=== PATIENT | male | born 1965 | race Caucasian/White ===

== ENCOUNTER 2019-11-02 14:44 | Emergency (ER) | payer OTHER, SELFPAY ==
[2019-11-02 14:51] VITALS: BP 134/91; PULSE 123; RESP 14; TEMP 39.5; O2SAT 97; BMI 35.7
--- NOTE | 2019-11-02 15:16 | XR_ITS ---
WS: [id number] Portable AP upright chest, 11/02/2019 Clinical Data: fever Comparison: None. Findings: No nodules, masses or effusions are seen. The heart is normal. The pulmonary vascularity is not increased. No pneumonia or pneumothorax is seen. XR/XR chest 1V portable [id number] Impression: Negative chest.
--- NOTE | 2019-11-02 15:16 | W.ED.FEVER ---
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 He is not had any cold exposure that he is aware of. Has no other COVID symptoms besides diarrhea and fever and he has not taken anything for the fever. He denies cough loss of taste smell or other related problems MD elicited complaint: fever Onset (ago): day(s) Exacerbating factors: nothing Relieving factors: nothing Associated symptoms: Reports diarrhea; Deny chills, chest pain, extremity pain, headache(s) or nasal congestion Review of Systems Const: Reports: fever(s); Denies: chills or body aches Eyes: Denies: change in vision or blurry vision ENMT: Denies: throat pain or nasal congestion Card: Denies: chest pain or dyspnea on exertion Resp: Denies: dyspnea, productive cough or non-productive cough GI: Reports: diarrhea : Denies: difficulty urinating Musc: Denies: extremity pain Skin/Breast: Denies: rash Neuro: Denies: headache(s) Psych: Denies: anxiety or depression Teofilo/Lymph: Denies: easy bruising Physical Exam Const: COMMON NORMALS: no acute distress, average body habitus and patient oriented x3 HENMT: COMMON NORMALS: normocephalic HEAD & SCALP: normal to inspection and normocephalic FACE & SINUS: normal facial exam Eye: COMMON NORMALS: conjunctivae normal GENERAL EYE: appearance normal, both eyes and all related structures CONJUNCTIVA: Yes conjunctivae normal Neck/C-Spine: COMMON NORMALS: no JVD Chest: COMMONS NORMALS: normal inspection of the chest Resp: COMMON NORMALS: normal respiratory effort and clear to auscultation bilaterally AUSCULTATION: clear to auscultation bilaterally Cardio: COMMON NORMALS: no JVD, regular rate and regular rhythm RATE: regular rate RHYTHM: regular rhythm GI: COMMON NORMALS: Normal to inspection, nondistended, normoactive bowel sounds present Extremity: COMMON NORMALS: normal to inspection and full ROM Neuro: COMMON NORMALS: patient oriented x3 Course Vital Signs: Vital signs: Vital Signs Temperature 103.1 F H 08/27/20 14:51 Pulse Rate 123 H 11/02/19 14:51 Respiratory Rate 14 11/02/19 14:51 Blood Pressure 134/91 11/02/19 14:51 Pulse Oximetry 97 11/02/19 14:51 Discharge Plan Discharge Condition: Good Coding Level of Care Code ED Multicut Line Operator for Dirk Jacinto
[2019-11-02] MEDS: sodium chloride 0.9% 1,000 ML 999 ML IV (15:45)
[2019-11-02] MEDS: ibuprofen 600 mg Tablet PO (15:45)
[2019-11-02] MEDS: acetaminophen 500 mg Tablet 1000 MG PO (15:45)
[2019-11-02 15:51] VITALS: O2SAT 95
[2019-11-02 16:10] LABS: Basophils % 0.3 %; Eosinophils % 0.1 %; Hemoglobin 15.6 g/dL (11.7-16.6); Lymphocytes # 0.8 10^3/uL (0.8-4.8); Lymphocytes % 7.2 %; Mean Corpuscular HGB Conc 34.7 g/dL (30.0-36.0); Mean Corpuscular Hemoglobin 33.1 pg (28.0-34.0); Mean Corpuscular Volume 95.3 fL (80-94); Mean Platelet Volume 8.8 fL (7.4-10.4); Monocytes # 0.5 10^3/uL (0.2-0.9); Monocytes % 5.2 %; Neutrophils # 9.07 10^3/uL (1.8-7.7); Neutrophils % 86.8 %; Nucleated Red Blood Cells % 0 %; Platelet Count 197 10^3/cmm (130-400); Red Blood Count 4.72 10^6/uL (4.1-5.3); Red Cell Distribution Width 11.9 % (12.1-15.1); White Blood Count 10.4 10^3/uL (4.0-10.0)
[2019-11-02 16:36] LABS: Alanine Aminotransferase 20 U/L (0-41); Albumin Level 4.1 g/dL (3.5-5.2); Alkaline Phosphatase 67 IU/L (40-130); Anion Gap 15.5 (5-19); Aspartate Amino Transferase 27 U/L (0-40); Blood Urea Nitrogen 13 mg/dL (6-20); Calcium 8.7 mg/dL (8.5-10.5); Carbon Dioxide 22 mmol/L (22-29); Chloride 100 mmol/L (98-107); Globulin 3.6 g/dL (1.3-4.6); Glomerular Filtration Rate 69.8 mL/min (90-130); Glucose 112 mg/dL (65-115); Osmolality Calculated 275 mOsm/kg (285-295); Potassium 3.5 mmol/L (3.5-5.1); Sodium 134 mmol/L (136-145); Total Bilirubin 0.6 mg/dL (0.15-1.2); Total Protein 7.7 g/dL (6.6-8.7)
[2019-11-02 16:38] VITALS: BP 108/68; PULSE 91; TEMP 37.9; O2SAT 94
[2019-11-02 17:10] VITALS: BP 120/84; PULSE 94; O2SAT 95
[2019-11-04 18:32] LABS: Quest SARS-CoV-2 RNA NOT DETECTED (NOT DETECTED)
--- NOTE | 2019-11-05 11:32 | PC.NURSE ---
pt was contacted and informed of his neg COVID results
== END 2019-11-02 17:10 | disposition home or self-care (01) ==
PROVIDERS: Emergency Provider Nurse Practitioner Family; Family Provider Family Medicine; PCP Nurse Practitioner
DX: R50.9 Fever, unspecified (principal)
CPT/HCPCS: 12345; 71045; 80053; 85025; 87635; 96360; 99282; 99283; J7030

== ENCOUNTER 2019-12-15 09:09 | Outpatient (CLI) | payer OTHER, SELFPAY ==
--- NOTE | 2019-12-15 | CT_ITS ---
WS: [id number] CT ABDOMEN AND PELVIS WITH CONTRAST HISTORY: LOWER MID ABD PAIN TECHNIQUE: Imaging performed of the abdomen and pelvis with IV contrast. Single phase imaging of the abdomen. Coronal and sagittal reformats are submitted. All CT scans at [facility] use at least one of these dose optimization techniques: automated exposure control; mA and/or kV adjustment per patient size (includes targeted exams where dose is matched to clinical indication); or iterativ e reconstruction. IV CONTRAST: Omnipaque 300; 95 mL IV. Oral contrast: Yes. DLP: 1193.05 mGycm COMPARISON: 12/06/2018 Lower thorax: No change 4 mm nodule at the RIGHT lung base. Heart is normal size. Small hiatal hernia . Liver/biliary system: Normal size with no intrahepatic dilatation. Gallbladder: Normal. No gallstones or wall thickening. No pericholecystic fluid. Pancreas: Normal. Spleen: Normal. Adrenal glands: Normal. Right kidney: Normal. Left kidney: Normal. Aorta: Minimal atherosclerosis with no aneurysm. Lymphadenopathy: None. Free fluid: None. GI tract: The appendix is not definitely identified but there is no evidence for appendicitis. Mild d iffuse constipation and fecal retention. There are a few scattered sigmoid diverticula without acute diverticulitis. Abdominal wall: Unremarkable abdominal wall. No hernia. Pelvis: Normal. Bones: Unremarkable. CT/CT abdomen pelvis w con* [id number] IMPRESSION: 1. Mild constipation. No obstruction. No acute abdominal or pelvic abnormaliti es identified. 2. Mild atherosclerosis aorta. 3. Minimal sigmoid diverticulosis without acute diverticulitis.
[2019-12-15] MEDS: iohexol 300 mg/mL 100 mL Btl IV (10:53)
== END 2019-12-15 09:10 | disposition home or self-care (01) ==
LOC: RADWPI 09:22
PROVIDERS: Family Provider Family Medicine; PCP Nurse Practitioner; Visit Provider Family Medicine
DX: R10.30 Lower abdominal pain, unspecified (principal); K59.00 Constipation, unspecified; I70.0 Atherosclerosis of aorta; K57.30 Diverticulosis of large intestine without perforation or abscess without bleeding
CPT/HCPCS: 74177; Q9967

== ENCOUNTER 2022-02-16 18:52 | Emergency (ER) | payer OTHER, SELFPAY ==
[2022-02-16 19:31] VITALS: BP 120/91; PULSE 100; RESP 18; TEMP 37.4; O2SAT 95; BMI 36.5
[2022-02-16 19:59] LABS: Influenza A by IFA negative (Negative); Influenza B by IFA negative (Negative)
[2022-02-16 20:30] LABS: SARS Covid-2 Antigen negative (Negative)
--- NOTE | 2022-02-16 20:39 | XRR_ITS ---
PROCEDURE INFORMATION: Exam: XR Chest Exam date and time: 02/16/2022 8:50 PM Age: 56 years old Clinical indication: Fever TECHNIQUE: Imaging protocol: Radiologic exam of the chest. Views: 1 view. COMPARISON: CR XR chest 1V portable [id number] 11/02/2019 3:54 PM FINDINGS: Lungs: Unremarkable. No consolidation. Pleural spaces: Unremarkable. No pleural effusion. No pneumothorax. Heart/Mediastinum: Unremarkable. No cardiomegaly. Bones/joints: Unremarkable. XR/XR chest 1V portable [id number] IMPRESSION: No change, lungs clear
--- NOTE | 2022-02-16 20:39 | W.ED.FEVER ---
HPI - Fever General: Chief Complaint: Fever Stated Complaint: Fever- Cant Break it Time Seen by Provider: 02/16/22 20:38 History of Present Illness: 56-year-old male patient comes in today for complaints of fever and headache for the last 2 days. Patient appears mildly unwell but not toxic. Patient appears in no pain. Patient reports no chronic medical problems. Associated symptoms: Reports headache(s) Review of Systems Const: Reports: fever(s) Neuro: Reports: headache(s) Physical Exam Const: COMMON NORMALS: alert HENMT: COMMON NORMALS: normocephalic HEAD & SCALP: normocephalic Neck/C-Spine: COMMON NORMALS: no meningeal signs Resp: COMMON NORMALS: normal respiratory effort and clear to auscultation bilaterally AUSCULTATION: clear to auscultation bilaterally Cardio: COMMON NORMALS: regular rate and regular rhythm RATE: regular rate RHYTHM: regular rhythm Extremity: COMMON NORMALS: normal to inspection Neuro: SENSORIUM/ORIENTATION: Yes alert MENINGEAL SIGNS: Yes no meningeal signs Skin: COMMON NORMALS: turgor normal GENERAL SKIN EXAM: turgor normal Course Vital Signs: Vital signs: Vital Signs Temperature 99.3 F 02/16/22 19:31 Pulse Rate 100 02/16/22 19:31 Respiratory Rate 18 02/16/22 19:31 Blood Pressure 120/91 02/16/22 19:31 Pulse Oximetry 95 02/16/22 19:31 Oxygen Delivery Me thod 02/16/22 19:31 MDM - Fever Medical Decision Making 56-year-old male patient comes in today for complaints of headache and fever for the last 2 days. On exam patient's bilateral tympanic membranes are normal. Patient does have some inspiratory wheeze. Abdomen soft nontender. No edema. Vital signs are normal. Differential diagnosis includes COVID-19, influenza, pneumonia, upper respiratory infection. COVID and flu test were negative. Chest x-ray was unremarkable. Reviewed exam with patient with recommendations for treatment and follow-up. Patient reported understanding agreed to plan. Lab Data Laboratory Results Influenza Type A Ag negative (Negative) 02/16/22 19:36 Influenza Type B Ag negative (Negative) 02/16/22 19:36 SARS-CoV-2 Ag (Rapid) negative (Negative) 02/16/22 19:36 Discharge Plan Discharge Patient Disposition: Home Clinical Impression: Viral infection Condition: Stable Prescriptions: No Action Zithromax Z-Joel 250 mg tablet See Rx Instructions .ROUTE .COMPLEX Qty: 6 0RF Rx Instructions: take 500 mg today (day 1), then 250 mg for 4 days (days 2-5) Discharge Orders: Discharge ED (Routine); Ordered 02/16/22 Ordered By: Juan Diego Arzate Discharge Diet: Usual diet Discharge Activity: Increase activity as tolerated Patient Instructions: Viral Syndrome (ED) Activity Restrictions/Additional Instructions: Drink plenty of fluids. Continue with acetaminophen and ibuprofen for pain and fever. Most often the fever will break within days 3-5. It is important to stay well-hydrated. Follow-up with primary care in 1 week for recheck. Return to ED for worsening symptoms such as inability to hold fluids down, severe chest pain, increased difficulty breathing, or new concerns. Stand Alone Forms: Work/School Release Coding Level of Care Code ED Licensed Direct Entry Midwife for Dirk Fwd Exam Detailed
[2022-02-16 21:06] VITALS: BP 127/79; PULSE 100; RESP 18; TEMP 37.1; O2SAT 95
== END 2022-02-16 21:05 | disposition home or self-care (01) ==
PROVIDERS: Emergency Medicine; Emergency Provider Nurse Practitioner Family
DX: B34.9 Viral infection, unspecified (principal); Z20.822 Contact with and (suspected) exposure to COVID-19
CPT/HCPCS: 71045; 87426; 87804; 99283

== ENCOUNTER 2022-05-09 21:30 | Emergency (ER) | payer OTHER, SELFPAY ==
[2022-05-09 21:41] VITALS: BP 132/92; PULSE 90; RESP 18; TEMP 36.9; O2SAT 97
--- NOTE | 2022-05-09 22:21 | W.ED.BACK ---
HPI - Back Pain/Injury General: Chief Complaint: Back Pain/Injury Stated Complaint: back pain Time Seen by Provider: 05/09/22 22:21 History of Present Illness: 56-year-old male patient comes in today for complaints of right-sided low back pain. Patient was using a sledgehammer on and since then he has had some right-sided low back tightness and muscle spasms. Patient appears nontoxic. Patient appears in mild to moderate pain. Patient does have a history of prior back problems but no chronic medical problems otherwise. Associated symptoms: Deny fever(s) or vomiting Review of Systems General: Reports: 10 or more systems reviewed and unremarkable except in HPI and below Const: Denies: fever(s) Card: Denies: chest pain Resp: Denies: dyspnea GI: Denies: vomiting : Denies: difficulty urinating Musc: Reports: back pain Skin/Breast: Denies: rash Neuro: Denies: headache(s) Physical Exam Const: COMMON NORMALS: alert HENMT: COMMON NORMALS: atraumatic HEAD & SCALP: atraumatic Neck/C-Spine: COMMON NORMALS: full ROM Resp: COMMON NORMALS: normal respiratory effort Cardio: COMMON NORMALS: regular rate RATE: regular rate GI: COMMON NORMALS: non-tender Back/Pelvis: THORACIC SPINE/UPPER BACK: No thoracic spinal tenderness and No paraspinal muscle tenderness LUMBAR SPINE/LOWER BACK: No lumbar spinal tenderness and Yes paraspinal muscle tenderness Lumbar paraspinal muscle tenderness: right Extremity: COMMON NORMALS: full ROM Neuro: SENSORIUM/ORIENTATION: Yes alert Course Vital Signs: Vital signs: Vital Signs Temperature 98.4 F 05/09/22 21:41 Pulse Rate 90 05/09/22 21:41 Respiratory Rate 18 05/09/22 21:41 Blood Pressure 132/92 05/09/22 21:41 Pulse Oximetry 97 05/09/22 21:41 Oxygen Delivery Me thod 05/09/22 21:41 MDM - Back Pain/Injury Medical Decision Making 56-year-old male patient comes in today for complaints of right-sided low back pain. On exam patient has muscle tenderness and tightness to the right lower lumbar region. No palpable tenderness along the thoracic or lumbar spine. Patient moves extremities without difficulty. Vital signs are normal. Differential diagnosis includes intervertebral disc disease, facet arthropathy, lumbar strain. Reviewed exam with patient with recommendations for treatment and follow-up. Patient reported understanding and agreed to plan. Discharge Plan Discharge Patient Disposition: Home Clinical Impression: Strain of lumbar region Qualifiers: Encounter type: initial encounter Qualified Code(s): S39.012A - Strain of muscle, fascia and tendon of lower back, initial encounter Condition: Stable Prescriptions: New diclofenac sodium 75 mg tablet,delayed release (DR/EC) 75 mg PO BID Qty: 20 0RF methocarbamol 750 mg tablet 750 mg PO TID PRN (Reason: muscle spasm) Qty: 15 0RF Discontinued azithromycin [Zithromax Z-Joel] 250 mg tablet See Rx Instructions .ROUTE .COMPLEX Qty: 6 0RF Rx Instructions: take 500 mg today (day 1), then 250 mg for 4 days (days 2-5) Discharge Orders: Discharge ED (Routine); Ordered 05/09/22 Ordered By: Juan Diego Arzate Discharge Diet: Usual diet Discharge Activity: Increase activity as tolerated Patient Instructions: Low Back Strain (ED) Activity Restrictions/Additional Instructions: Activity as tolerated. Use diclofenac 75 mg 1 tablet 2 times a day for pain and inflammation. Use methocarbamol 750 mg 1 tablet 3 times a day for muscle spasms. The use of methocarbamol may make you sleepy so do not use it if you are operating equipment or machinery that could harm yourself or others including motor vehicles. Drink plenty of water with medication. Gentle stretching and range of motion exercises. You can use acetaminophen 1000 mg 3 times a day as needed for further pain relief. Follow-up with primary care in 1 week for recheck. Return to ED for new concerns. Coding Level of Care Code ED Production Broacher for Dirk Jacinto
[2022-05-09] MEDS: cyclobenzaprine 10 mg Tablet PO (22:42)
[2022-05-09] MEDS: ketorolac 30 mg/mL INJ IM (22:42)
--- NOTE | 2022-05-15 14:06 | DCPLANNER ---
Addendum entered by Ramona Vieira 05/18/22 13:03: manager contact called patient due to no primary care physician. manager contact called phone number [phone] - no answer at this time. Original Note: manager contact called patient due to no primary care physician. manager contact called phone number [phone] - no answer at this time.
== END 2022-05-09 22:46 | disposition home or self-care (01) ==
PROVIDERS: Emergency Provider Nurse Practitioner Family
DX: S39.012A Strain of muscle, fascia and tendon of lower back, initial encounter (principal); X58.XXXA Exposure to other specified factors, initial encounter
CPT/HCPCS: 96372; 99284; J1885

== ENCOUNTER 2023-08-10 09:09 | Emergency (ER) | payer OTHER, SELFPAY ==
[2023-08-10 09:15] VITALS: BP 161/107; PULSE 80; RESP 16; TEMP 36.7; O2SAT 97; BMI 27.3
--- NOTE | 2023-08-10 09:22 | ED_ITS ---
HPI - URI/Sore Throat General: Chief Complaint: Upper Respiratory Infection Stated Complaint: congestion Time Seen by Provider: 08/10/23 09:10 Source: patient Mode of arrival: ambulatory Limitations: no limitations History of Present Illness: Patient is a 57-year-old male presents to ED today with complaint of a productive cough and nasal congestion. Patient states he has had a dry irritative cough over the past 2 weeks or so. He initially thought this could be related to his allergies. Patient does not take any allergy medication. He states over the past few days cough has now turned productive and he is having a green like phlegm. He is not running fevers. He is not noting any chest pain or significant shortness of breath. No sick contacts. He he arrives in no acute distress. He is hypertensive upon arrival. No known history of hypertension. MD elicited complaint: cough and nasal congestion Pertinent past history: seasonal allergies Onset (ago): day(s) Consistency: constant Severity: moderate Description of mucous: green Able to tolerate fluids by mouth: Yes Exacerbating factors: nothing Relieving factors: nothing Associated symptoms: Reports cough, nasal congestion and sinus pain; Deny chills, chest pain, diarrhea, ear or mastoid pain, fever(s), headache(s) or vomiting Treatments prior to arrival: none Review of Systems Const: Denies: fever(s), chills, body aches or fatigue Eyes: Denies: change in vision, blurry vision, photophobia, eye discomfort or eye discharge ENMT: Reports: nasal congestion and sinus pain; Denies: throat pain, odynophagia, ear or mastoid pain or post nasal drip Card: Denies: chest pain Resp: Reports: productive cough, non-productive cough and chest congestion; Denies: dyspnea, wheezing or hemoptysis GI: Denies: vomiting or diarrhea Musc: Denies: neck pain Neuro: Denies: headache(s) All/Imm: Denies: facial swelling or seasonal rhinorrhea Physical Exam Const: COMMON NORMALS: no acute distress, average body habitus, patient oriented x3, no limitations, alert and well nourished GENERAL APPEARANCE: cooperative ORIENTATION/CONSCIOUSNESS: Yes awake, Yes oriented to person, Yes oriented to place and Yes oriented to time HENMT: COMMON NORMALS: normocephalic, atraumatic, hearing grossly normal bilaterally, external ears normal, EAC's normal, TM's normal bilaterally, Normal external nose present, Normal nasal mucous membranes and turbinates present, moist oral mucous membranes and oropharynx normal HEAD & SCALP: normal to inspection, normocephalic and atraumatic FACE & SINUS: normal facial exam and sinuses nontender NOSE: Normal external nose present and Normal nasal mucous membranes and turbinates present EXTERNAL EAR: Yes external ears normal EXTERNAL AUDITORY CANAL: EAC's normal TYMPANIC MEMBRANE: TM's normal bilaterally MOUTH: Normal oral and palatal mucosa present and lip normal THROAT: posterior oropharynx normal, tonsils normal and uvula midline Eye: COMMON NORMALS: Equal, round and reactive pupils present, EOMs intact bilaterally and conjunctivae normal CONJUNCTIVA: Yes conjunctivae normal PUPIL: Yes Equal, round and reactive pupils present Neck/C-Spine: COMMON NORMALS: no lymphadenopathy Chest: COMMONS NORMALS: normal inspection of the chest and normal palpation of entire chest wall Resp: COMMON NORMALS: normal respiratory effort EFFORT & INSPECTION: No respiratory distress, No labored, No grunting, No stridor, No Actively coughing and No audible wheezes AUSCULTATION: other (prolonged expiratory phase) Cardio: COMMON NORMALS: regular rate and regular rhythm RATE: regular rate RHYTHM: regular rhythm Extremity: COMMON NORMALS: normal to inspection, no clubbing, cyanosis or edema, no calf tenderness and no pedal edema GENERAL: Yes normal exam except as noted Neuro: COMMON NORMALS: patient oriented x3, moves all extremities, no focal motor deficits, no sensory deficits noted and gait normal SENSORIUM/ORIENTATION: Yes alert, Yes oriented to person, Yes oriented to place and Yes oriented to time Skin: COMMON NORMALS: no rashes or lesions noted GENERAL SKIN EXAM: no rashes or lesions noted Course Vital Signs: Vital signs: Vital Signs Temperature 98.1 F 08/10/23 09:15 Pulse Rate 80 08/10/23 09:15 Respiratory Rate 16 08/10/23 09:15 Blood Pressure 161/107 08/10/23 09:15 Pulse Oximetry 97 08/10/23 09:15 Oxygen Delivery Me thod Room Air 08/10/23 09:15 MDM - URI/Sore Throat Medical Decision Making Patient appears in no acute distress. He is not tachycardic. He is afebrile. He is satting 97% on room air. CXR is unremarkable. Patient will be treated for probable viral URI versus allergies. There is no indication for antibiotics at this time. Recommend follow-up with PCP if symptoms do not begin to improve over the next 1 to 2 days. Return ED precautions given. Differential Diagnosis Likely upper respiratory infection, viral infection and bronchitis Medical Records I reviewed the patient's medical records. XR interpretation done by ED provider, pending radiology final review Discharge Plan Discharge Patient Disposition: Home Clinical Impression: Bronchitis Condition: Stable Prescriptions: New albuterol sulfate 90 mcg/actuation HFA aerosol inhaler 2 inh INHALATION Q4H PRN (Reason: shortness of breath or wheezing) Qty: 6.7 0RF prednisone 10 mg tablet 10 mg PO DAILY 6 Days Qty: 20 0RF Rx Instructions: Take 5 tabs on day 1-2, 4 tabs on day 3, 3 tabs on day 4, 2 tabs on day 5, and 1 tab on day 6 Discharge Orders: Discharge ED (Routine); Ordered 08/10/23 Ordered By: Elli Brar Patient Instructions: Bronchitis (Acute) - Adult, Acute Bronchitis (ED), Allergies (ED) Activity Restrictions/Additional Instructions: As we discussed, in addition to the medications prescribed to you today I would like you to start taking an [id number] allergy medicine (Claritin, Zyrtec, Xyzal are options available). Please follow-up with your primary care provider in 1 to 2 weeks if symptoms do not seem to be improving. Coding Level of Care Code ED Director Of Diagnostic Imaging for Dirk Jacinto
--- NOTE | 2023-08-10 09:22 | XRR_ITS ---
PROCEDURE INFORMATION: Exam: XR Chest Exam date and time: 08/10/2023 9:24 AM Age: 57 years old Clinical indication: Cough; Additional info: Cough/congestion TECHNIQUE: Imaging protocol: Radiologic exam of the chest. Views: 1 view. COMPARISON: CR XR chest 1V portable [id number] 02/16/2022 8:50 PM FINDINGS: Lungs: Unremarkable. No consolidation. Pleural spaces: Unremarkable. No pleural effusion. No pneumothorax. Heart/Mediastinum: Unremarkable. No cardiomegaly. Bones/joints: Unremarkable. XR/XR chest 1V portable [id number] IMPRESSION: No acute findings.
[2023-08-10 09:57] VITALS: BP 168/113; PULSE 84; RESP 16; O2SAT 94
== END 2023-08-10 09:58 | disposition home or self-care (01) ==
PROVIDERS: Emergency Provider Physician Assistant
DX: J40 Bronchitis, not specified as acute or chronic (principal)
CPT/HCPCS: 71045; 99283

== ENCOUNTER 2023-11-02 13:10 | Outpatient (CLI) | payer OTHER, SELFPAY ==
--- NOTE | 2023-11-02 13:12 | MR_ITS ---
WS: [id number] MRI CERVICAL SPINE NONCONTRAST HISTORY: CERVICAL RADICULOPATHY COMPARISON: None available. Technique: Multiplanar, multisequence noncontrast imaging of the cervical spine. Straightening and reversal of the cervical lordosis. Reversal is centered from C4-C7. C3 anterolisthe sis by 3 mm. No acute fractures or marrow edema. Disc spaces are narrowed and desiccated, most significant at C5-6 and C6-7. No signal abnormality wit hin the cord. Craniocervical junction, C1 and C2 relationship, odontoid process and soft tissues are normal. C2-C3: Normal. C3-C4: Osteophytic ridging with annular disc bulging and facet arthritis. Mild central with severe fo raminal stenosis. C4-C5: Mild annular disc bulge with a central disc protrusion. Mild facet and ligamentum flavum hyper trophy. Disc contacts the ventral thecal sac with effacement of CSF. Mild central with bilateral fora guillermina stenosis, LEFT greater than RIGHT. C5-C6: Diffuse annular disc bulging with osteophytic ridging and facet arthritis. Bilateral disc oste ophyte complexes slightly greater on the LEFT encroaching upon the thecal sac. Severe central with bi lateral foraminal stenosis. C6-C7: Diffuse osteophytic ridging with annular disc bulging. There is a large disc osteophyte comple x in the RIGHT foramen displacing the nerve roots. Smaller but still significant LEFT foraminal disc osteophyte. Moderate central with moderate to severe bilateral foraminal stenosis. C7-T1: Normal. Paraspinal soft tissue are normal. MR/MR cervical spin wo con* [id number] IMPRESSION: 1. Advanced degenerative disc disease with osteophytes and disc protrusions at C4-5 through C6-7. 2. C3-4: Mild central and bilateral foraminal stenosis. 3. C4-5: Central disc protrusion contacting the thecal sac. Mild central with bilateral foraminal stenosis. 4. C5-6: Bilateral disc osteophyte complexes slightly greater on the LEFT. Dis c osteophyte encroaching upon the thecal sac. Severe central with bilateral for aminal stenosis. 5. C6-7: Moderate central with moderate to severe bilateral foraminal stenosis . Large disc osteophyte complex in the RIGHT foramen. Smaller disc osteophyte L EFT foramen. 6. Reversal of the normal cervical lordosis from C4-C7.
== END 2023-11-02 13:11 | disposition home or self-care (01) ==
LOC: RAD 13:10
PROVIDERS: Visit Provider Family Medicine
DX: M50.321 Other cervical disc degeneration at C4-C5 level (principal); M50.322 Other cervical disc degeneration at C5-C6 level; M50.223 Other cervical disc displacement at C6-C7 level; M50.20 Other cervical disc displacement, unspecified cervical region; M25.78 Osteophyte, vertebrae
CPT/HCPCS: 72141

== ENCOUNTER 2023-12-07 10:48 | Emergency (ER) | payer OTHER, SELFPAY ==
[2023-12-07 11:36] VITALS: PULSE 97; RESP 18; TEMP 36.7; O2SAT 95
[2023-12-07 11:38] VITALS: BP 144/98; PULSE 70; RESP 18; TEMP 36.7; O2SAT 96
--- NOTE | 2023-12-07 12:47 | ED_ITS ---
HPI - Dental/Oral General: Chief complaint: Dental/Oral Stated complaint: dental pain Time Seen by Provider: 12/07/23 12:39 Source: patient Mode of arrival: ambulatory Limitations: no limitations History of Present Illness: 58-year-old male states has been having right upper dental pain for the last 2 days states he tried to get into a dentist today and was unable to be states the pain is sharp in nature he denies any fevers denies any trismus denies any difficulty swallowing he rates his pain a 7 out of 10 currently Associated symptoms: Denies fever(s) Related Data Previous Rx's Medication Instructions Recorded albuterol sulfate 90 mcg/actuation 2 inh inhalation Q4H PRN shortness 08/10/23 aerosol inhaler of breath or wheezing #6.7 grams cephalexin 500 mg capsule 500 mg PO TID 7 days #21 caps 12/07/23 naproxen 500 mg tablet (Naprosyn) 500 mg PO BID PRN pain #20 tabs 12/07/23 Allergies Allergy/AdvReac Type Severity Reaction Status Date / Time No Known Allergies Allergy Verified 05/09/22 21:44 Review of Systems Const: Denies: fever(s), chills, body aches or change in appetite ENMT: Reports: dental pain; Denies: throat pain Card: Denies: chest pain Resp: Denies: dyspnea GI: Denies: abdominal pain, nausea, vomiting or diarrhea Musc: Denies: neck pain or back pain Skin/Breast: Denies: rash Neuro: Denies: headache(s) Physical Exam Const: COMMON NORMALS: no acute distress, patient oriented x3 and healthy appearing HENMT: COMMON NORMALS: normocephalic and atraumatic HEAD & SCALP: normocephalic and atraumatic OTHER: Has dental caries with tenderness to right upper molar no abscess or trismus Neck/C-Spine: COMMON NORMALS: full ROM and supple Chest: COMMONS NORMALS: normal inspection of the chest Resp: COMMON NORMALS: normal respiratory effort Cardio: COMMON NORMALS: regular rate RATE: regular rate Extremity: COMMON NORMALS: normal to inspection and full ROM Neuro: COMMON NORMALS: patient oriented x3, moves all extremities and no focal motor deficits Psych: COMMON NORMALS: mental status grossly normal, Normal thought process present and cooperative THOUGHT PROCESS: Normal thought process present Skin: COMMON NORMALS: no rashes or lesions noted and no wounds GENERAL SKIN EXAM: no rashes or lesions noted Course Vital Signs: Vital signs: Vital Signs Temperature 98.1 F 12/07/23 11:38 Pulse Rate 70 12/07/23 11:38 Respiratory Rate 18 12/07/23 11:38 Blood Pressure 144/98 12/07/23 11:38 Pulse Oximetry 96 12/07/23 11:38 Oxygen Delivery Me thod Room Air 12/07/23 11:38 MDM - Dental/Oral Medical Decision Making Patient presents here with dental pain he does have dental caries no signs of abscess or trismus we will place him on antibiotics he is to follow-up with dentist return if worsening he understands agrees to plan Medical Records I reviewed the patient's medical records. No radiology studies performed this visit Discharge Plan Discharge Patient Disposition: Home Clinical Impression: Toothache Condition: Stable Prescriptions: New cephalexin 500 mg capsule 500 mg PO TID 7 Days Qty: 21 0RF naproxen [Naprosyn] 500 mg tablet 500 mg PO BID PRN (Reason: pain) Qty: 20 0RF No Action albuterol sulfate 90 mcg/actuation HFA aerosol inhaler 2 inh INHALATION Q4H PRN (Reason: shortness of breath or wheezing) Qty: 6.7 0RF Discharge Orders: Discharge ED (Routine); Ordered 12/07/23 Ordered By: Nataliya Cortés Referrals: Alesia Cooley MD [Primary Care Provider] - Discharge Diet: Advance as tolerated Discharge Activity: Resume usual activity Patient Instructions: Toothache (ED) Coding Level of Care Code ED Home Therapy Clinician for Dirk Jacinto
[2023-12-07] MEDS: HYDROcodone-acetaminophen 5-325 mg Tablet 1 TAB PO (13:00)
[2023-12-07] MEDS: cephALEXin 500 mg Capsule PO (13:00)
[2023-12-07 13:10] VITALS: BP 170/106; PULSE 74; O2SAT 97
== END 2023-12-07 13:10 | disposition home or self-care (01) ==
PROVIDERS: Emergency Provider Emergency Medicine; PCP Family Medicine
DX: K08.89 Other specified disorders of teeth and supporting structures (principal); K02.9 Dental caries, unspecified
CPT/HCPCS: 99283

== ENCOUNTER 2023-12-31 13:39 | Emergency (ER) | payer OTHER, SELFPAY ==
[2023-12-31 13:45] VITALS: BP 113/79; PULSE 90; RESP 18; TEMP 36.3; O2SAT 94
--- NOTE | 2023-12-31 13:47 | XR_ITS ---
WS: [id number] Exam: XR chest 1V portable [id number] Date/Time of Exam: 12/31/2023 1:51 PM Reason For Exam: cp Comparison 08/10/2023. The lungs are clear and fully inflated. Heart size top limits normal. The mediastinum is normal in co ntour. No pleural effusions. Bony structures intact. Spondylosis of the T-spine. XR/XR chest 1V portable [id number] IMPRESSION: 1. No acute process noted.
--- NOTE | 2023-12-31 13:47 | ECG_ITS ---
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 Measurements Intervals [place] Rate: 93 P: 42 DC: 171 QRS: -14 QRSD: 105 T: 58 QT: 356 QTc: 443 Interpretive Statements SINUS RHYTHM WITH FREQUENT VENTRICULAR PREMATURE COMPLEXES INCOMPLETE RIGHT BUNDLE BRANCH BLOCK [90+ ms QRS DURATION, TERMINAL R IN V1/V2, 40+ ms S IN I/aVL/V4/V5/V6] NONSPECIFIC T-WAVE ABNORMALITY ABNORMAL RHYTHM ECG No previous ECG available for comparison Electronically Signed On 01-03-2024 00:01:17 CDT by Nitin Lance M.D. [id number]
[2023-12-31 14:03] LABS: Basophils # 0.1 10^3/uL (0.0-0.1); Basophils % 0.6 %; Eosinophils # 0.2 10^3/uL (0.0-0.8); Eosinophils % 1.9 %; Hematocrit 43.5 % (37-53); Lymphocytes # 1.9 10^3/uL (0.8-4.8); Mean Corpuscular HGB Conc 35.6 g/dL (30-55); Mean Corpuscular Hemoglobin 34.4 pg (27-33); Mean Corpuscular Volume 96.7 fl (82-101); Mean Platelet Volume 8.4 fL (7.4-10.4); Monocytes # 0.5 10^3/uL (0.2-0.9); Monocytes % 6.8 %; Neutrophils # 5.29 10^3/uL (1.8-7.7); Neutrophils % 66.4 %; Nucleated Red Blood Cells % 0 %; Platelet Count 246 10^3/cmm (157-399); Red Cell Distribution Width 11.9 % (12.1-15.1); White Blood Count 7.96 10^3/uL (3.29-11.43)
[2023-12-31 14:20] LABS: Alanine Aminotransferase 14 U/L (0-41); Albumin Level 4.2 g/dL (3.5-5.2); Alkaline Phosphatase 79 U/L (40-130); Anion Gap 16.8 (5-19); Aspartate Amino Transferase 20 U/L (0-40); Blood Urea Nitrogen 9 mg/dL (6-20); Calcium 8.7 mg/dL (8.5-10.5); Carbon Dioxide 22 mmol/L (22-29); Chloride 102 mmol/L (98-107); Creatinine Clr Calc Pharmacy 135.8473; Globulin 2.5 g/dL (1.3-4.6); Glomerular Filtration Rate 115.8 mL/min (90-130); Glucose 120 mg/dL (65-115); Lipase 49 U/L (13-60); Osmolality Calculated 284 mOsm/kg (285-295); Potassium 3.8 mmol/L (3.5-5.1); Sodium 137 mmol/L (136-145); Total Bilirubin 0.3 mg/dL (0.15-1.2); Total Protein 6.7 g/dL (6.6-8.7)
[2023-12-31 14:27] LABS: Troponin(5th) Baseline 7 ng/L (0-15)
--- NOTE | 2023-12-31 14:28 | W.ED.CHESTPA ---
HPI - Chest Pain General: Chief Complaint: Chest Pain Stated Complaint: chest pain radiates down left arm Time Seen by Provider: 12/31/23 13:52 History of Present Illness: 58-year-old male presents the emergency department chief complaint of having intermittent chest pain. 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 Patient endorses significant cardiac history in the family but not in himself he reports with rest the chest pain is resolved on its own spontaneously. Patient endorses [facility] reports no prior history of hypertension hypercholesterolemia or diabetes. The patient endorsed with his chest pain he had some mild shortness of breath with no palpitations patient does endorse a prior history of cervical spine issues that he goes to chronic pain management for patient presents to the ER from work for further assessment and management. Associated symptoms: Deny abdominal pain, dyspnea, fever(s), nausea, palpitations or vomiting Related Data Home Medications Medication Instructions Recorded Confirmed atorvastatin 10 mg tablet 10 mg PO DAILY 12/31/23 12/31/23 cholecalciferol (vitamin D3) 50 50 mcg PO DAILY 12/31/23 12/31/23 mcg (2,000 unit) capsule (Vitamin D3) Previous Rx's Medication Instructions Recorded naproxen 500 mg tablet (Naprosyn) 500 mg PO BID PRN pain #20 tabs 12/07/23 Allergies Allergy/AdvReac Type Severity Reaction Status Date / Time No Known Allergies Allergy Verified 12/31/23 13:49 Review of Systems General: Reports: 10 or more systems reviewed and unremarkable except in HPI and below Const: Reports: fatigue and malaise; Denies: fever(s) or chills Eyes: Denies: change in vision or blurry vision Card: Reports: chest pain; Denies: palpitations Resp: Denies: dyspnea or productive cough GI: Denies: abdominal pain, nausea or vomiting : Denies: flank pain Musc: Denies: extremity pain or extremity swelling Skin/Breast: Denies: rash or pruritus Neuro: Denies: headache(s) Psych: Denies: anxiety or depression Teofilo/Lymph: Denies: easy bleeding All/Imm: Denies: urticaria, throat swelling or facial swelling Physical Exam Const: COMMON NORMALS: no acute distress, patient oriented x3 and healthy appearing OTHER: Patient appears somewhat anxious on exam he appears in no acute distress no active pain at this time HENMT: COMMON NORMALS: normocephalic and atraumatic HEAD & SCALP: normocephalic and atraumatic Eye: COMMON NORMALS: Equal, round and reactive pupils present and EOMs intact bilaterally PUPIL: Yes Equal, round and reactive pupils present Neck/C-Spine: COMMON NORMALS: full ROM, supple and no JVD Lymph: LYMPHATIC: no lymphadenopathy noted Chest: COMMONS NORMALS: normal inspection of the chest and normal palpation of entire chest wall Resp: COMMON NORMALS: normal respiratory effort, No retractions and clear to auscultation bilaterally EFFORT & INSPECTION: Yes able to speak in complete sentences and Yes symmetric chest movement AUSCULTATION: clear to auscultation bilaterally Cardio: COMMON NORMALS: no JVD, regular rate and regular rhythm RATE: regular rate RHYTHM: regular rhythm GI: COMMON NORMALS: Normal to inspection, nondistended, normoactive bowel sounds present, Soft to palpation and non-tender INSPECTION: Yes normal to inspection PALPATION: Yes Soft to palpation : COMMON NORMALS: Yes no CVA tenderness BLADDER/KIDNEY EXAM: Yes no CVA tenderness Back/Pelvis: COMMON NORMALS: no CVA tenderness Extremity: COMMON NORMALS: normal to inspection and full ROM Neuro: COMMON NORMALS: patient oriented x3, CN's II-XII intact bilaterally, moves all extremities and no focal motor deficits Psych: COMMON NORMALS: mental status grossly normal, Normal thought process present, cooperative and normal affect THOUGHT PROCESS: Normal thought process present Skin: COMMON NORMALS: no rashes or lesions noted GENERAL SKIN EXAM: no rashes or lesions noted Course Vital Signs: Vital signs: Vital Signs Temperature 97.4 F L 12/31/23 13:45 Pulse Rate 87 12/31/23 18:00 Respiratory Rate 24 H 12/31/23 18:00 Blood Pressure 145/105 12/31/23 18:00 Pulse Oximetry 94 12/31/23 18:00 Oxygen Delivery Me thod Room Air 12/31/23 18:00 MDM - Chest Pain Medical Decision Making Due to patient's symptoms and condition cardiac workup will be obtained we will continue follow-up EKG reveals frequent PVCs but no ST segment elevations or depressions noted noted to be in normal sinus rhythm. Patient currently has no current discomfort at this time we will continue to follow. Patient does report a significant family history of cardiac disease although many of his family in which the patient has no prior history of cardiac work[facility] in the past by the [facility]. The patient's cardiac enzymes came back unremarkable patient developed no obvious EKG changes throughout his stay in emergency department suffer from frequent PVCs advised patient he will need further follow-up outpatient with cardiology at this time we do not see any obvious signs suggestive of acute coronary syndrome or NSTEMI or unstable angina did advise patient due to his risk factors will need further assessment management with a cardiac stress test as well as additional workup advised patient to return the interim if any of his symptoms persist or worse. Lab Data 12/31/23 13:57 12/31/23 13:57 Radiology Impressions Chest X-Ray 12/31/23 13:47 IMPRESSION: 1. No acute process noted. Laboratory Results WBC 7.96 10^3/uL (3.29-11.43) 12/31/23 13:57 RBC 4.50 10^6/uL (3.85-5.65) 12/31/23 13:57 Hgb 15.50 g/dL (11.27-16.99) 12/31/23 13:57 Hct 43.5 % (37-53) 12/31/23 13:57 MCV 96.7 fl (82-101) 12/31/23 13:57 MCH 34.4 pg (27-33) H 12/31/23 13:57 MCHC 35.6 g/dL (30-55) 12/31/23 13:57 RDW 11.9 % (12.1-15.1) L 12/31/23 13:57 Plt Count 246 10^3/cmm (157-399) 12/31/23 13:57 MPV 8.4 fL (7.4-10.4) 12/31/23 13:57 Neut % (Auto) 66.4 % 12/31/23 13:57 Lymph % (Auto) 24.0 % 12/31/23 13:57 [place] % (Auto) 6.8 % 12/31/23 13:57 Eos % (Auto) 1.9 % 12/31/23 13:57 Baso % (Auto) 0.6 % 12/31/23 13:57 Neut # (Auto) 5.29 10^3/uL (1.8-7.7) 12/31/23 13:57 Lymph # (Auto) 1.9 10^3/uL (0.8-4.8) 12/31/23 13:57 [place] # (Auto) 0.5 10^3/uL (0.2-0.9) 12/31/23 13:57 Eos # (Auto) 0.2 10^3/uL (0.0-0.8) 12/31/23 13:57 Baso # (Auto) 0.1 10^3/uL (0.0-0.1) 12/31/23 13:57 Nucleated RBC % (auto) 0 % 12/31/23 13:57 Nucleated RBCs # 0.0 /100WBC 12/31/23 13:57 Sodium 137 mmol/L (136-145) 12/31/23 13:57 Potassium 3.8 mmol/L (3.5-5.1) 12/31/23 13:57 Chloride 102 mmol/L (98-107) 12/31/23 13:57 Carbon Dioxide 22 mmol/L (22-29) 12/31/23 13:57 Anion Gap 16.8 (5-19) 12/31/23 13:57 BUN 9 mg/dL (6-20) 12/31/23 13:57 Creatinine 0.7 mg/dL (0.7-1.2) 12/31/23 13:57 GFR Calculation 115.8 mL/min (90-130) 12/31/23 13:57 Glucose 120 mg/dL (65-115) H 12/31/23 13:57 Calculated Osmolality 284 mOsm/kg (285-295) L 12/31/23 13:57 Calcium 8.7 mg/dL (8.5-10.5) 12/31/23 13:57 Total Bilirubin 0.3 mg/dL (0.15-1.2) 12/31/23 13:57 AST 20 U/L (0-40) 12/31/23 13:57 ALT 14 U/L (0-41) 12/31/23 13:57 Alkaline Phosphatase 79 U/L (40-130) 12/31/23 13:57 Troponin T Baseline 7 ng/L (0-15) 12/31/23 13:57 Troponin T 120 Minute 6.00 ng/L (0-15) 12/31/23 15:58 Delta Troponin T -1.00 ABS# (0-10) L 12/31/23 15:58 NT-Pro-B Natriuret Pep < 36 pg/mL (0-125) 12/31/23 13:57 Total Protein 6.7 g/dL (6.6-8.7) 12/31/23 13:57 Albumin 4.2 g/dL (3.5-5.2) 12/31/23 13:57 Globulin 2.5 g/dL (1.3-4.6) 12/31/23 13:57 Lipase 49 U/L (13-60) 12/31/23 13:57 XR interpretation done by ED provider, pending radiology final review Discharge Plan Discharge Patient Disposition: Home Clinical Impression: Chest pain Qualifiers: Chest pain type: unspecified Qualified Code(s): R07.9 - Chest pain, unspecified Condition: Stable Prescriptions: No Action naproxen [Naprosyn] 500 mg tablet 500 mg PO BID PRN (Reason: pain) Qty: 20 0RF atorvastatin 10 mg Tablet 10 mg PO DAILY cholecalciferol (vitamin D3) [Vitamin D3] 50 mcg (2,000 unit) Capsule 50 mcg PO DAILY Discharge Orders: Discharge ED (Routine); Ordered 12/31/23 Ordered By: Alejandro Snider Referrals: Alesia Cooley MD [Primary Care Provider] - 1-3 days (For further assessment and cardiac workup.) Discharge Diet: Cardiac Discharge Activity: Increase activity as tolerated Patient Instructions: Chest Pain (ED) Activity Restrictions/Additional Instructions: Your lab work and imaging obtained the emergency department today has come back inconclusive to what the main reason of your chest pain you have described is there is no obvious labs to suggest any obvious ischemia or lack of blood supply to your heart or any obvious lung issue it is advised you to further follow-up with your primary care doctor for further investigation via stress test or echocardiogram as well as other cardiac workup to further diagnose your reported chest pain in the meanwhile it is recommended that you take a baby aspirin daily. Please return in the interim if any of your symptoms persist or worse. Coding Level of Care Code ED Dairy Manufacturing Technologist for Dirk Jacinto
[2023-12-31 14:49] VITALS: BP 119/82; PULSE 88; RESP 20; O2SAT 94
[2023-12-31 15:38] LABS: NT Pro B Type Natriuretic Pept < 36 pg/mL (0-125)
[2023-12-31 15:45] VITALS: BP 122/93; PULSE 93; RESP 20; O2SAT 93
--- NOTE | 2023-12-31 15:47 | ECG_ITS ---
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 Measurements Intervals [place] Rate: 75 P: 43 GA: 173 QRS: -12 QRSD: 110 T: 66 QT: 384 QTc: 432 Interpretive Statements SINUS RHYTHM NONSPECIFIC T-WAVE ABNORMALITY Compared to ECG 12/31/2023 13:39:06 Ventricular premature complex(es) no longer present Incomplete right bundle-branch block no longer present T-wave abnormality still present Electronically Signed On 01-04-2024 00:48:58 CDT by Nitin Lance M.D. [id number]
[2023-12-31 16:45] VITALS: BP 131/95; PULSE 85; O2SAT 93
[2023-12-31 18:00] VITALS: BP 145/105; PULSE 87; RESP 24; O2SAT 94
[2023-12-31 18:36] VITALS: BP 142/92; PULSE 89; O2SAT 94
== END 2023-12-31 18:37 | disposition home or self-care (01) ==
PROVIDERS: Emergency Medicine; Emergency Provider Emergency Medicine; PCP Family Medicine
DX: R07.9 Chest pain, unspecified (principal)
CPT/HCPCS: 36415; 71045; 80053; 83690; 83880; 84484; 85025; 93005; 99285

== ENCOUNTER 2024-01-12 20:00 | Outpatient (CLI) | payer OTHER, SELFPAY | END 2024-01-12 20:01 | disposition home or self-care (01) | LOC: SLEEP 22:03 | PROVIDERS: PCP Family Medicine; Visit Provider Family Medicine | DX: G47.33 Obstructive sleep apnea (adult) (pediatric) (principal); Z99.89 Dependence on other enabling machines and devices | CPT/HCPCS: 95811 ==

== ENCOUNTER → 2024-03-03 08:58 | Outpatient (BNVA) | payer OTHER, SELFPAY | PROVIDERS: PCP Family Medicine; Referring Provider Family Medicine; Visit Provider Internal Medicine | DX: R07.9 Chest pain, unspecified (principal); E78.5 Hyperlipidemia, unspecified; F17.220 Nicotine dependence, chewing tobacco, uncomplicated | CPT/HCPCS: 93005; 99204 ==

== ENCOUNTER 2024-03-31 09:33 | Outpatient (CLI) | payer OTHER, SELFPAY ==
--- NOTE | 2024-03-31 | ECG_ITS ---
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 Interpretive Statements LEXISCAN: Procedure: At the baseline, the blood pressure was 139/98 mmHg with a heart rate of 79 bpm. The electrocardiogram showed normal sinus rhythm, normal axis with normal ST and T's. The Lexiscan was infused over a period of 20 seconds. A total of 0.4 mg of Lexiscan was infused. The stress phase was continued for a total of 5 minutes. Heart rate was at the end of stress phase was 98 bpm and a blood pressure of 131/86 mmHg. The EKG at the peak infusion revealed normal sinus rhythm with no significant ST-T wave changes. Sestamibi was injected 20 seconds after the Lexiscan infusion. Blood pressure at the end of recovery phase was 115/86 mmHg with a heart rate of 91 bpm. Conclusion: 1. Normal EKG response to Lexiscan infusion 2. No Lexiscan induced chest pain or cardiac arrhythmia. 3. Normal blood pressure and heart rate response. 4. Sestamibi/sestamibi perfusion scan pending; see separate report. Electronically Signed On 04-08-2024 23:15:02 FITTER/WELDER by Krishan Higgins M.D. [id number]
[2024-03-31 09:50] VITALS: BMI 35.7
--- NOTE | 2024-03-31 09:51 | NMCV_ITS ---
Abdominal Doppler Martín Merchant Age: 58 Gender: M : 1965 Exam Date: 03/31/2024 10:39 Ordering Phys: Krishan Higgins M.D ([email or web address]) Technologist: SHEREE Aguilar Exam Location: [facility] Indications: cp STRESS TEST Please see separate stress test report in [facility] for full findings IMAGE PROTOCOL Rest/Stress 1 Lexiscan Day Radiopharmaceutical Dose (mCi) Administration Site Administered by Rest: Tc-99m 10.8 IV SHEREE Aguilar Sestamibi Stress:Tc-99m 32.6 IV SHEREE Gotti Sestamibi Rest: 31-Mar-2024 60 Discovery 630 Stress: 31-Mar-2024 30 Discovery 630 0.4mg Lexiscan. Images obtained in supine and prone position. SPECT RESULTS Technical Quality: Good Raw Data Analysis: Normal Image Corrections: No attenuation or motion correction applied Summed Stress Score: 8 Summed Rest Score: 7 Summed Difference Score: 4 PERFUSION FINDINGS Small to medium sized partially reversible perfusion defect seen in the inferior and inferolateral garcia. This is consistent with small to medium sized area of prior infarct with small to medium sized area of willy-infarct ischemia in these territories. FUNCTIONAL RESULTS (calculated via Gated SPECT) Stress Image LV EF (%): 56 Stress EDV (mL):133 TID: 1.07 Stress ESV (mL):58 FUNCTIONAL FINDINGS: There is normal left ventricular systolic function. IMPRESSIONS 1. Small to medium sized area of prior infarct with small to medium sized area of willy-infarct ischemia seen in the inferior and inferolateral garcia. 2. LV systolic function is normal Krishan Higgins MD (Electronically Signed) Final Date: 31 March 2024 20:48 S
[2024-03-31] MEDS: regadenoson 0.4 Mg/5 ml Syringe IVP (11:01)
[2024-03-31 11:11] VITALS: BP 132/65; PULSE 65
== END 2024-03-31 09:34 | disposition home or self-care (01) ==
PROVIDERS: PCP Family Medicine; Visit Provider Internal Medicine
DX: R06.02 Shortness of breath (principal)
CPT/HCPCS: 36415; 78452; 93017; 96374; A9500; J2785

== ENCOUNTER 2024-03-31 14:01 | Outpatient (CLI) | payer OTHER, SELFPAY ==
--- NOTE | 2024-03-31 14:15 | USCV_ITS ---
Martín Merchant Age: 58 Gender: M : 1965 Exam Date: 03/31/2024 14:38 Ordering Phys: Technologist: Timothy Reynolds [place] [facility] [place]: sob BP: 145 / 105 HR: 88 Rhythm: Sinus Technical Quality: Adequate MEASUREMENTS (Male / Female) Normal Values 2D ECHO LV Diastolic Diameter PLAX 3.9 cm 4.2 - 5.9 / 3.9 - 5.3 cm IVS Diastolic Thickness 1.3 cm 0.6 - 1.0 / 0.6 - 0.9 cm IVS Systolic Thickness 1.8 cm LVPW Diastolic Thickness 1.7 cm 0.6 - 1.0 / 0.6 - 0.9 cm LVPW Systolic Thickness 1.8 cm LVOT Diameter 2.1 cm LV Ejection Fraction 2D Teich 53.0 % LV Ejection Fraction MOD 4C 52.9 % LV Ejection Fraction MOD 2C 50.7 % LV Ejection Fraction 2C AL 54.0 % LA Diameter 3.6 cm RA Systolic Volume 4C AL 38.7 ml RA Systolic Volume 4C MOD 38.3 ml LA Sys Volume AL 27.0 cm cubed LA Sys Volume Index AL 11.6 cm cubed/m squared Aorta at Sinotubular Diameter 2.6 cm IVC Diameter 1.6 cm M-MODE LA Ao Ratio MM 1.1 AV Cusp Separation MM 1.8 cm DOPPLER AV Peak Velocity 141.0 cm/s LVOT Peak Velocity 82.0 cm/s AV Area Cont Eq vti 1.7 cm squared AV Area Cont Eq pk 2.0 cm squared MV Peak Velocity 78.0 cm/s MV Area PHT 3.9 cm squared Mitral E to A Ratio 0.8 TV Peak Velocity 201.3 cm/s TR Peak Velocity 206.0 cm/s TR Peak Gradient 17.0 mmHg TR Mean Velocity 160.0 cm/s TR Mean Gradient 11.0 mmHg TR Velocity Time Integral 57.7 cm PV Peak Velocity 124.0 cm/s RV Ejection Time 0.2 s FINDINGS Left Ventricle Left ventricle is normal in size. LV systolic function is normal with EF of 50 to 55%. No regional wall motion abnormalities are seen. Right Ventricle Normal in size and function Right Atrium Normal in size Left Atrium Normal in size Mitral Valve Structurally normal mitral valve. Mild mitral regurgitation. Aortic Valve Structurally normal aortic valve. No significant stenosis or regurgitation. Tricuspid Valve Mild tricuspid regurgitation. Pulmonary artery systolic pressure is normal. Pulmonic Valve Not well-visualized. Pericardium Normal Aorta Ascending aorta is mildly dilated with diameter of 3.62cm IVC Appears to be normal CONCLUSIONS LV systolic function is normal with EF of 50 to 55%. Mild mitral regurgitation. Mild tricuspid regurgitation. Ascending aorta is mildly dilated with diameter of 3.62 cm. No comparison studies are available. Krishan Higgins MD (Electronically Signed) Final Date: 01 April 2024 13:19 S
== END 2024-03-31 14:02 | disposition home or self-care (01) ==
LOC: RAD 14:01
PROVIDERS: PCP Family Medicine; Visit Provider Internal Medicine
DX: R06.02 Shortness of breath (principal); I34.0 Nonrheumatic mitral (valve) insufficiency; I07.1 Rheumatic tricuspid insufficiency; I77.819 Aortic ectasia, unspecified site
CPT/HCPCS: 93306

== ENCOUNTER → 2024-04-28 10:24 | Outpatient (BNVA) | payer OTHER, SELFPAY | PROVIDERS: PCP Family Medicine; Visit Provider Nurse Practitioner Family | DX: I49.3 Ventricular premature depolarization (principal); R94.31 Abnormal electrocardiogram [ECG] [EKG]; E78.5 Hyperlipidemia, unspecified; I25.9 Chronic ischemic heart disease, unspecified | CPT/HCPCS: 93005; 99213 ==

== ENCOUNTER → 2024-11-02 14:03 | Outpatient (BNVA) | payer OTHER, SELFPAY | PROVIDERS: PCP Family Medicine; Visit Provider Internal Medicine | DX: R07.9 Chest pain, unspecified (principal); R94.39 Abnormal result of other cardiovascular function study | CPT/HCPCS: 99214 ==